=== PATIENT | male | born 1960 | race Asian ===

== ENCOUNTER → 2018-11-22 | Outpatient (CLI) | payer MEDICAID | END | disposition home or self-care (01) | LOC: RADMN 12:36 | PROVIDERS: ATTEND Internal Medicine Cardiovascular Disease | DX: I25.9 Chronic ischemic heart disease, unspecified (principal); I42.5 Other restrictive cardiomyopathy | CPT/HCPCS: 78472; A9560 ==

== ENCOUNTER 2024-06-14 18:06 | Emergency (ER) | payer MEDICAID ==
[~2024-06-14] VITALS: Ht 172.7 cm; Wt 90.0 kg
[2024-06-14 18:56] VITALS: TEMP 98.2
[2024-06-14 20:44] LABS: BASOPHILS % (AUTO) 0.5 % (0.0-2.0); EOSINOPHILS % (AUTO) 0.3 % (1.0-6.0); HEMATOCRIT 49.3 % (41-53); HEMOGLOBIN 16.1 g/dL (13.5-17.5); LYMPHOCYTES # (AUTO) 1.2 K/uL (1.0-4.8); LYMPHOCYTES % (AUTO) 14.2 % (22.0-44.0); MEAN CORPUSCULAR HEMOGLOBIN 30.8 pg (26.0-34.0); MEAN CORPUSCULAR HGB CONC 32.7 G/dL (31.0-37.0); MEAN CORPUSCULAR VOLUME 94 fL (80-100); MONOCYTES # (AUTO) 0.4 K/uL (0.1-1.0); MONOCYTES % (AUTO) 5.1 % (2.0-9.0); NEUTROPHILS % (AUTO) 79.9 % (40.0-70.0); PLATELET COUNT (AUTO) 235 K/uL (150-450); RED BLOOD CELL COUNT(AUTO) 5.23 MIL/uL (4.50-5.90); RED CELL DISTRIBUTION WIDTH 13.1 % (11.5-14.5); WHITE BLOOD COUNT (AUTO) 8.8 K/uL (4.5-11.0)
[2024-06-14 20:54] LABS: ANION GAP 6 mmol/L (8-16); CALCIUM, TOTAL 9.2 mg/dL (8.8-10.5); CARBON DIOXIDE 27 mmol/L (22-29); CHLORIDE 103 mmol/L (98-107); CREATININE 1.34 mg/dL (0.60-1.30); GLOMERULAR FILTR. RATE CALC 54 mL/min (>60); GLUCOSE,RANDOM 193 mg/dL (70-110); SODIUM SERUM 136 mmol/L (136-145); UREA NITROGEN, BLOOD 17 mg/dL (7-18)
[2024-06-14 21:02] LABS: ALCOHOL, BLOOD (SERUM) < 3 mg/dL (0-10)
[2024-06-14 21:11] LABS: GLUCOMETER DEV NAME(LOC) ER.7; GLUCOSE,POINT OF CARE 117 MG/DL (70-110)
[2024-06-14 21:23] LABS: COVID AG,FIA SOURCE NASAL SWAB
[2024-06-14 21:41] LABS: SARS-COV2 (COVID) ANTIGEN,FIA Negative (Negative)
[2024-06-14 22:09] VITALS: BP 145/90; PULSE 80; RESP 16; O2SAT 100
== END 2024-06-15 00:06 | disposition home or self-care (01) ==
LOC: EMS 18:06
DX: R46.89 Other symptoms and signs involving appearance and behavior (principal); Z20.822 Contact with and (suspected) exposure to COVID-19
CPT/HCPCS: 99285; 87426; 80048; 82962; 85025; 36415; G0480